=== PATIENT | male | born 1975 | race Caucasian/White ===

== ENCOUNTER → 2021-09-24 | Outpatient (CLI) | payer BC, SELFPAY ==
--- NOTE | 2021-09-24 08:30 | MRI_ITS ---
STUDY: MRI BRAIN WITH AND WITHOUT CONTRAST (ATTENTION INTERNAL AUDITORY CANALS - I.A.C.''s) REASON FOR EXAM: Male, 46 years old. HEARING LOSS TECHNIQUE: Standardized multiplanar fat and water weighted pulse sequences were obtained. ml of 17cc dotarem contrast material was administered intravenously for the contrast portion of the examination. COMPARISON: None. FINDINGS: Normal bilateral temporal bones. Normal bilateral internal auditory canals. There is no demonstrated intracanalicular or cisternal vestibular schwannoma (acoustic neuroma). There is no enhancement of the bilateral VIIth or VIIIth cranial nerves. Normal bilateral cochlea, vestibules and semicircular canals. No abnormal enlargement of the vestibules. No cerebellar pontine angle mass or cyst. Normal size of the ventricles and extra-axial spaces for the patient''s age. Normal white matter tracts of the supratentorial brain. There is no evidence for recent intracranial ischemia or other cause of cytotoxic edema on diffusion weighted imaging (DWI). Normal T2* images of the brain without demonstrated susceptibility artifact. There is no demonstrated hemosiderin stain. Normal bilateral frontal poles, and orbital frontal and gyrus recti of the frontal lobes. Normal bilateral temporal tips of the temporal lobes. There are no white matter shear injuries (diffuse axonal injuries). There are no parenchymal hemorrhages or hematomas. There are no findings to suggest prior closed head parenchymal injury of the brain. Normal bilateral basal ganglia. Normal thalami. Normal flow voids within the major intracranial circulation suggesting patency by spin echo criteria. Normal venous enhancement. There is no enhancing intra-axial or extra-axial abnormality. No focal brain parenchymal lesions or abnormal enhancement. No thickening or abnormal enhancement of the meninges or dura. There is no extra-axial fluid accumulation. Normal sella turcica, pituitary gland, infundibular stalk, optic chiasm and hypothalamus. Normal tectal plate and pineal gland. Normal midbrain, mavis and medulla. Normal cerebellum. Normal basal cisterns. No demonstrated orbital abnormality, within the constraints of a routine brain study. There is mucoperiosteal inflammatory disease of the paranasal sinuses consistent with mild chronic sinusitis. Normal calvarium and skull base. Normal visualized soft tissue structures. Normal visualized upper cervical spine. MRI/Brain W/WO Contrast IMPRESSION: Normal unenhanced and enhanced MRI of the bilateral internal auditory canals (I.A.C''s). Electronically Signed: Nikko Messina MD at 15:36 EDT ,
== END | disposition home or self-care (01) ==
LOC: MRI 08:01
PROVIDERS: Referring Provider Otolaryngology; Visit Provider Otolaryngology
DX: H90.3 Sensorineural hearing loss, bilateral (principal)
CPT/HCPCS: 70553; A9575